=== PATIENT | male | born 1995 | race Caucasian/White ===

== ENCOUNTER 2017-02-10 12:50 | Emergency (ER) | payer BC, OTHER ==
[2017-02-10 13:06] VITALS: RESP 20; TEMP 98.3
[2017-02-10 13:37] LABS: Basophils # (A) 0.1 k/uL (0-0.2); Basophils % (A) 1 %; CH 30.8; CHCM 34.3; Eosinophils # (A) 0.3 k/uL (0-0.7); Eosinophils % (A) 3 %; HDW 2.59; HGB 17.3 gm/dL (13.0-17.5); Luc % (Auto) 2; Lymphocytes # (A) 2.4 k/uL (1.0-4.8); Lymphocytes % (A) 25 %; MCHC 33.2 g/dL (31.0-37.0); MCV 90.2 fL (80.0-100.0); Mean Platelet Volume 6.4; Monocytes # (A) 0.6 k/uL (0-1.0); Monocytes % (A) 6 %; Neutrophils % (A) 63 %; RBC 5.76 m/uL (4.30-5.90); RDW 13.3 % (11.5-15.5); WBC 9.5 k/uL (3.8-10.6); WBC (Perox) 8.81
--- NOTE | 2017-02-10 13:46 | XR ---
EXAMINATION TYPE: XR chest 2V DATE OF EXAM: 02/10/2017 COMPARISON: NONE TECHNIQUE: PA and lateral views submitted. HISTORY: Productive cough FINDINGS: The lungs are clear and there is no pneumothorax, pleural effusion, or focal pneumonia. IMPRESSION: 1. No acute process.
--- NOTE | 2017-02-10 13:54 | ED ---
URI HPI - General Chief Complaint: Upper Respiratory Infection Stated Complaint: Tonsillitis Time Seen by Provider: 02/10/17 13:05 Source: patient, family, RN notes reviewed Mode of arrival: ambulatory Limitations: no limitations - History of Present Illness Initial Comments: This a 21-year-old male presents emergency Department chief complaint of cough and cold-like symptoms for last 2-3 months. Patient states she's been having ongoing issues for last 2-3 years and which she was admitted in June for trismus and tonsillitis. Patient did end up having a tonsillectomy and states that he felt great after for the first 3 months but has recently started with similar symptoms which include nasal congestion, post his drainage, cough. Patient states that he has been seeing a physician in [place] in which she states this is his primary care physician and is place him on 14 days of antibiotics 1 month ago when he had no improvement of symptoms. He went back was given nasal sprays states he continues with symptoms. Patient states he has not follow-up with ENT for his symptoms. Patient denies fever, chills, headache or dizziness. Patient states that his mom wants him tested for leukemia. Patient denies any abdominal pain denies nausea and diarrhea constipation. Patient denies any neck pain or neck stiffness - Related Data Home Medications Medication Instructions Recorded Confirmed Loratadine [Claritin] 10 mg PO DAILY 02/10/17 02/10/17 Previous Rx's Medication Instructions Recorded methylPREDNISolone [Medrol Dose 4 mg PO DIRECTED #1 pack 02/10/17 Pack] Allergies Allergy/AdvReac Type Severity Reaction Status Date / Time No Known Allergies Allergy Verified 02/10/17 13:02 Review of Systems ROS Statement: Those systems with pertinent positive or pertinent negative responses have been documented in the HPI. ROS Other: All systems not noted in ROS Statement are negative. Past Medical History Past Medical History: No Reported History History of Any Multi-Drug Resistant Organisms: None Reported Past Surgical History: Tonsillectomy Past Psychological History: No Psychological Hx Reported Smoking Status: Never smoker Past Alcohol Use History: None Reported Past Drug Use History: None Reported - Past Family History Mother History Unknown: Yes General Exam Limitations: no limitations General appearance: alert, in no apparent distress Head exam: Present: atraumatic, normocephalic, normal inspection Eye exam: Present: normal appearance, PERRL, EOMI. Absent: scleral icterus, conjunctival injection, periorbital swelling ENT exam: Present: mucous membranes moist, TM's normal bilaterally, normal external ear exam, other (Nasal irritation noted). Absent: normal exam, normal oropharynx (Mild postnasal drainage) Neck exam: Present: normal inspection, full ROM. Absent: tenderness, meningismus, lymphadenopathy Respiratory exam: Present: normal lung sounds bilaterally. Absent: respiratory distress, wheezes, rales, rhonchi, stridor Cardiovascular Exam: Present: regular rate, normal rhythm, normal heart sounds. Absent: systolic murmur, diastolic murmur, rubs, gallop, clicks Back exam: Absent: CVA tenderness (R), CVA tenderness (L) Neurological exam: Present: alert, oriented X3, CN II-XII intact Skin exam: Present: warm, dry, intact, normal color. Absent: rash Course Vital Signs 02/10/17 13:02 Temperature 98.3 F Pulse Rate 110 H Respiratory 20 Rate Blood Pressure 160/95 O2 Sat by Pulse 94 L Oximetry Medical Decision Making - Medical Decision Making 21-year-old male present emergency from for chronic sinus congestion cough. Patient was likely has chronic ALLERGIES and sinusitis. Patient has been on antibiotics with no improvement. Patient bent taking Flonase no improvement. Patient given a course steroids for his ALLERGIES and advised to follow up with ENT. Patient did see Rakesh in the hospital but never follow patient. Patient is recommending another ENT in [place]. Patient also saw an ENT and [place] in which she also can follow up there. Return parameters were discussed - Lab Data Result diagrams: 02/10/17 13:28 02/10/17 13:28 Lab Results 02/10/17 02/10/17 02/10/17 Range/Units 13:28 13:28 13:28 WBC 9.5 (3.8-10.6) k/uL RBC 5.76 (4.30-5.90) m/uL Hgb 17.3 (13.0-17.5) gm/dL Hct 52.0 (39.0-53.0) % MCV 90.2 (80.0-100.0) fL MCH 30.0 (25.0-35.0) pg MCHC 33.2 (31.0-37.0) g/dL RDW 13.3 (11.5-15.5) % Plt Count 371 (150-450) k/uL Neutrophils % 63 % Lymphocytes % 25 % Monocytes % 6 % Eosinophils % 3 % Basophils % 1 % Neutrophils # 6.0 (1.3-7.7) k/uL Lymphocytes # 2.4 (1.0-4.8) k/uL Monocytes # 0.6 (0-1.0) k/uL Eosinophils # 0.3 (0-0.7) k/uL Basophils # 0.1 (0-0.2) k/uL Sodium 141 (137-145) mmol/L Potassium 4.5 (3.5-5.1) mmol/L Chloride 102 (98-107) mmol/L Carbon Dioxide 27 (22-30) mmol/L Anion Gap 12 mmol/L BUN 13 (9-20) mg/dL Creatinine 1.08 (0.66-1.25) mg/dL Est GFR (MDRD) Af Amer >60 (>60 ml/min/1.73 sqM) Est GFR (MDRD) Non-Af >60 (>60 ml/min/1.73 sqM) Glucose 85 (74-99) mg/dL Calcium 10.0 (8.4-10.2) mg/dL Total Bilirubin 1.0 (0.2-1.3) mg/dL AST 38 (17-59) U/L ALT 61 (21-72) U/L Alkaline Phosphatase 81 (38-126) U/L Total Protein 7.9 (6.3-8.2) g/dL Albumin 4.9 (3.5-5.0) g/dL Heterophile Antibody Negative (Negative) Disposition Clinical Impression: Chronic sinusitis, Environmental allergies Disposition: HOME SELF-CARE Condition: Stable Instructions: Allergies (ED) Additional Instructions: Please return to the Emergency Department if symptoms worsen or any other concerns. Prescriptions: methylPREDNISolone [Medrol Dose Pack] 4 mg PO DIRECTED #1 pack Referrals: None,Stated [Primary Care Provider] - 1-2 days Time of Disposition: 14:12
[2017-02-10 13:58] LABS: ALT 61 U/L (21-72); AST 38 U/L (17-59); Alkaline Phosphatase 81 U/L (38-126); Anion Gap 12 mmol/L; Blood Urea Nitrogen 13 mg/dL (9-20); Carbon Dioxide 27 mmol/L (22-30); Chloride 102 mmol/L (98-107); Glucose 85 mg/dL (74-99); Non-African American GFR(MDRD) >60 (>60 ml/min/1.73 sqM); Potassium 4.5 mmol/L (3.5-5.1); Sodium 141 mmol/L (137-145); Total Protein 7.9 g/dL (6.3-8.2)
[2017-02-10 14:20] VITALS: BP 155/90; PULSE 95
== END 2017-02-10 14:20 | disposition home or self-care (01) ==
LOC: EC 12:50
DX: T78.49XA Other allergy, initial encounter (principal); J32.9 Chronic sinusitis, unspecified; Z79.899 Other long term (current) drug therapy; Z90.89 Acquired absence of other organs
CPT/HCPCS: 36415; 71020; 80053; 85025; 86308; 99283

== ENCOUNTER 2020-10-25 20:03 | Emergency (ER) | payer BC, OTHER ==
[2020-10-25 20:17] VITALS: RESP 18; TEMP 97.4
[2020-10-25] MEDS ORDERED: SODIUM CHLORIDE 0.9% 1,000 ML IV STA (20:41)
--- NOTE | 2020-10-25 21:31 | XR ---
EXAMINATION TYPE: XR chest 2V DATE OF EXAM: 10/25/2020 COMPARISON: 02/10/2017 HISTORY: Cough TECHNIQUE: Frontal and lateral views of the chest are obtained. FINDINGS: The lungs are clear of consolidative, interstitial masslike opacity. There is no pleural effusion, pleural thickening or pneumothorax. The heart, pulmonary vasculature, mediastinum and hilum appear normal. The osseous structures and soft tissues are unremarkable. IMPRESSION: No acute cardiopulmonary process.
[2020-10-25 21:39] LABS: Appearance,Urine Clear (Clear); Bilirubin,Urine Negative (Negative); Blood,Urine Negative (Negative); Color,Urine Yellow; Glucose,Urine (UA) 3+ (Negative); Leukocyte Esterase,Urine Negative (Negative); Nitrite,Urine Negative (Negative); PH, Urine 5.5 (5.0-8.0); Protein,Urine Trace (Negative); Specific Gravity,Urine 1.025 (1.001-1.035); Urobilinogen,Urine <2.0 mg/dL (<2.0)
[2020-10-25 21:47] LABS: ALT 57 U/L (4-49); AST 39 U/L (17-59); African American GFR (CKD) >90 (>60 ml/min/1.73 sqM); Albumin 4.9 g/dL (3.5-5.0); Alkaline Phosphatase 81 U/L (38-126); Anion Gap 10 mmol/L; Basophils # (A) 0.1 k/uL (0-0.2); Basophils % (A) 0 %; Blood Urea Nitrogen 18 mg/dL (9-20); Carbon Dioxide 25 mmol/L (22-30); Chloride 103 mmol/L (98-107); Eosinophils % (A) 0 %; Glucose 101 mg/dL (74-99); HCT 49.4 % (39.0-53.0); HGB 16.2 gm/dL (13.0-17.5); Lymphocytes % (A) 12 %; MCH 29.2 pg (25.0-35.0); MCHC 32.8 g/dL (31.0-37.0); MCV 89.2 fL (80.0-100.0); Monocytes % (A) 6 %; Neutrophils # (A) 13.4 k/uL (1.3-7.7); Neutrophils % (A) 81 %; Non-African American GFR(CKD) >90 (>60 ml/min/1.73 sqM); Platelet Count 323 k/uL (150-450); Potassium 3.9 mmol/L (3.5-5.1); RBC 5.54 m/uL (4.30-5.90); RDW 13.2 % (11.5-15.5); Sodium 138 mmol/L (137-145); Total Bilirubin 0.6 mg/dL (0.2-1.3); Total Protein 7.9 g/dL (6.3-8.2); WBC 16.6 k/uL (3.8-10.6)
[2020-10-25 21:51] LABS: Ketones,Urine 2+ (Negative)
[2020-10-25 21:58] VITALS: BP 104/68; PULSE 88
[2020-10-25 22:01] LABS: Partial Thromboplastin Time 23.8 sec (22.0-30.0); Prothrombin Time 10.8 sec (9.0-12.0)
--- NOTE | 2020-10-25 22:39 | ED ---
General Adult HPI - General Chief complaint: Weakness Stated complaint: Possible allergic reaction Source: patient, EMS Mode of arrival: EMS Limitations: no limitations - History of Present Illness Initial comments: 25-year-old male with no past medical history presents emergency department after he had a presyncopal episode. Patient states he was driving home from work when he had shortness of breath. States began having carpal pedal spasms and felt his whole body go numb. He felt as if he could not keep his eyes open and therefore pulled off to the side of the road. He admits that he is taking a new reflux medication that he started last week. Has not had any issues up until today. States that he drank 1 energy drink at work however no other ingestions. EMS arrived and felt the patient may be having an ALLERGIC reaction and therefore gave him 50 mg of Benadryl and started an IV. Patient admitted to having slight chest pain. Admits nausea without vomiting. No previous history of cardiac disease. Denies family history of cardiac disease. No other allevi ating, precipitating or modifying factors - Related Data Home Medications Medication Instructions Recorded Confirmed Omeprazole 40 mg PO HS 10/25/20 10/25/20 Allergies Allergy/AdvReac Type Severity Reaction Status Date / Time No Known Allergies Allergy Verified 10/25/20 21:31 Review of Systems ROS Statement: Those systems with pertinent positive or pertinent negative responses have been documented in the HPI. ROS Other: All systems not noted in ROS Statement are negative. Past Medical History Past Medical History: Asthma, GERD/Reflux, Thyroid Disorder Additional Past Medical History / Comment(s): COVID History of Any Multi-Drug Resistant Organisms: None Reported Past Surgical History: Tonsillectomy Past Psychological History: No Psychological Hx Reported Smoking Status: Never smoker Past Alcohol Use History: Occasional Past Drug Use History: Marijuana - Past Family History Mother History Unknown: Yes General Exam Limitations: no limitations Course Vital Signs 10/25/20 10/25/20 10/25/20 20:05 21:49 22:51 Temperature 97.4 F L 97.4 F L Pulse Rate 108 H 88 88 Respiratory 18 18 18 Rate Blood Pressure 141/83 104/68 104/68 O2 Sat by Pulse 98 98 98 Oximetry 10/25/20 22:53 Temperature Pulse Rate Respiratory 18 Rate Blood Pressure O2 Sat by Pulse Oximetry EKG Findings - EKG Comments: EKG Findings:: EKG demonstrates sinus tachycardia with a ventricular rate of 109. TX interval 142. QRS 76. QTC of 471. No acute ST segment elevations or depressions Medical Decision Making - Medical Decision Making Upon arrival the patient was placed into hallway . A thorough history and physical exam was performed. Laboratory studies were conducted and patient provided a urine sample. 12-lead EKG was performed the patient went for chest x-ray. I blood cell count 16.6. Urinalysis demonstrates 3+ glucose. Glucose of the serum is 101. Chest x-ray demonstrates no acute findings. Patient is reevaluated and reports improvement in his symptoms. This time the patient will be discharged home. Recommend hemoglobin A1c and Holter monitoring through his primary care office. Patient understood this. Return to emergency room for any new or worsening symptoms. Patient discharged with the physician - Lab Data Result diagrams: 10/25/20 20:25 10/25/20 20:25 Lab Results 10/25/20 10/25/20 10/25/20 Range/Units 20:25 20:25 20:25 WBC 16.6 H (3.8-10.6) k/uL RBC 5.54 (4.30-5.90) m/uL Hgb 16.2 (13.0-17.5) gm/dL Hct 49.4 (39.0-53.0) % MCV 89.2 (80.0-100.0) fL MCH 29.2 (25.0-35.0) pg MCHC 32.8 (31.0-37.0) g/dL RDW 13.2 (11.5-15.5) % Plt Count 323 (150-450) k/uL MPV 7.0 Neutrophils % 81 % Lymphocytes % 12 % Monocytes % 6 % Eosinophils % 0 % Basophils % 0 % Neutrophils # 13.4 H (1.3-7.7) k/uL Lymphocytes # 2.0 (1.0-4.8) k/uL Monocytes # 1.0 (0-1.0) k/uL Eosinophils # 0.0 (0-0.7) k/uL Basophils # 0.1 (0-0.2) k/uL PT 10.8 (9.0-12.0) sec INR 1.0 (<1.2) APTT 23.8 (22.0-30.0) sec Sodium (137-145) mmol/L Potassium (3.5-5.1) mmol/L Chloride (98-107) mmol/L Carbon Dioxide (22-30) mmol/L Anion Gap mmol/L BUN (9-20) mg/dL Creatinine (0.66-1.25) mg/dL Est GFR (CKD-EPI)AfAm (>60 ml/min/1.73 sqM) Est GFR (CKD-EPI)NonAf (>60 ml/min/1.73 sqM) Glucose (74-99) mg/dL Calcium (8.4-10.2) mg/dL Total Bilirubin (0.2-1.3) mg/dL AST (17-59) U/L ALT (4-49) U/L Alkaline Phosphatase (38-126) U/L Troponin I (0.000-0.034) ng/mL Total Protein (6.3-8.2) g/dL Albumin (3.5-5.0) g/dL Urine Color Yellow Urine Appearance Clear (Clear) Urine pH 5.5 (5.0-8.0) Ur Specific [place] 1.025 (1.001-1.035) Urine Protein Trace H (Negative) Urine Glucose (UA) 3+ H (Negative) Urine Ketones 2+ H (Negative) Urine Blood Negative (Negative) Urine Nitrite Negative (Negative) Urine Bilirubin Negative (Negative) Urine Urobilinogen <2.0 (<2.0) mg/dL Ur Leukocyte Esterase Negative (Negative) 10/25/20 10/25/20 Range/Units 20:25 20:25 WBC (3.8-10.6) k/uL RBC (4.30-5.90) m/uL Hgb (13.0-17.5) gm/dL Hct (39.0-53.0) % MCV (80.0-100.0) fL MCH (25.0-35.0) pg MCHC (31.0-37.0) g/dL RDW (11.5-15.5) % Plt Count (150-450) k/uL MPV Neutrophils % % Lymphocytes % % Monocytes % % Eosinophils % % Basophils % % Neutrophils # (1.3-7.7) k/uL Lymphocytes # (1.0-4.8) k/uL Monocytes # (0-1.0) k/uL Eosinophils # (0-0.7) k/uL Basophils # (0-0.2) k/uL PT (9.0-12.0) sec INR (<1.2) APTT (22.0-30.0) sec Sodium 138 (137-145) mmol/L Potassium 3.9 (3.5-5.1) mmol/L Chloride 103 (98-107) mmol/L Carbon Dioxide 25 (22-30) mmol/L Anion Gap 10 mmol/L BUN 18 (9-20) mg/dL Creatinine 1.03 (0.66-1.25) mg/dL Est GFR (CKD-EPI)AfAm >90 (>60 ml/min/1.73 sqM) Est GFR (CKD-EPI)NonAf >90 (>60 ml/min/1.73 sqM) Glucose 101 H (74-99) mg/dL Calcium 10.0 (8.4-10.2) mg/dL Total Bilirubin 0.6 (0.2-1.3) mg/dL AST 39 (17-59) U/L ALT 57 H (4-49) U/L Alkaline Phosphatase 81 (38-126) U/L Troponin I <0.012 (0.000-0.034) ng/mL Total Protein 7.9 (6.3-8.2) g/dL Albumin 4.9 (3.5-5.0) g/dL Urine Color Urine Appearance (Clear) Urine pH (5.0-8.0) Ur Specific [place] (1.001-1.035) Urine Protein (Negative) Urine Glucose (UA) (Negative) Urine Ketones (Negative) Urine Blood (Negative) Urine Nitrite (Negative) Urine Bilirubin (Negative) Urine Urobilinogen (<2.0) mg/dL Ur Leukocyte Esterase (Negative) Disposition Clinical Impression: Respiratory insufficiency Disposition: HOME SELF-CARE Condition: Stable Instructions (If sedation given, give patient instructions): Shortness of Breath (ED) Additional Instructions: Please follow up with your PCP. You should have holter monitoring and a hemoglobin a1c performed. Return to the ED for any new or worsening symptoms. Is patient prescribed a controlled substance at d/c from ED?: No Referrals: Elen Apple MD [Primary Care Provider] - 1-2 days Decision Date: 10/25/20 Decision Time: 22:39
== END 2020-10-25 22:56 | disposition home or self-care (01) ==
LOC: EC 20:03
DX: R06.89 Other abnormalities of breathing (principal); R55 Syncope and collapse; R53.1 Weakness; R07.9 Chest pain, unspecified; R06.02 Shortness of breath; R11.0 Nausea; R20.0 Anesthesia of skin; R25.2 Cramp and spasm; J45.909 Unspecified asthma, uncomplicated; K21.9 Gastro-esophageal reflux disease without esophagitis
CPT/HCPCS: 36415; 71046; 80053; 81003; 84484; 85025; 85610; 85730; 93005; 96360; 99285

== ENCOUNTER → 2020-10-26 | Outpatient (CLI) | payer BC ==
[2020-10-26 20:32] LABS: HCT 50.8 % (39.6-50.0); HGB 16.5 g/dL (13.0-17.0); MCH 29.9 pg (27.0-32.0); MCHC 32.5 g/dL (32.0-37.0); Mean Platelet Volume 10.4 fL (9.5-12.2); Platelet Count 339 X 10*3/uL (140-440); RBC 5.52 X 10*6/uL (4.40-5.60); RDW 12.9 % (11.5-14.5); WBC 9.15 X 10*3/uL (4.50-10.00)
[2020-10-26 21:11] LABS: Protein, Total 7.1 g/dL (6.2-8.2)
[2020-10-26 21:28] LABS: Ferritin 116.3 ng/mL (22.0-322.0)
[2020-10-26 23:27] LABS: African American GFR (CKD) 120.7 (60.0-200.0); Albumin 5.1 g/dL (3.80-4.90); Albumin/Globulin Ratio 2.32 (1.60-3.17); Anion Gap 8.6 mmol/L (4.00-12.00); Calcium 9.8 mg/dL (8.7-10.3); Carbon Dioxide 25.4 mmol/L (21.6-31.8); Globulin 2.2 g/dL (1.6-3.3); Non-African American GFR(CKD) 104.1 (60.0-200.0); Potassium 4.3 mmol/L (3.5-5.5); Total Bilirubin 0.5 mg/dL (0.3-1.2); Total Protein 7.3 g/dL (6.2-8.2)
[2020-10-29 13:35] LABS: Albumin 4.42 g/dL (3.80-4.90); Gamma Globulin 0.83 g/dL (0.70-1.50)
== END | disposition home or self-care (01) ==
LOC: LABWHC1 10:50
PROVIDERS: ATTEND Family Medicine
DX: K21.9 Gastro-esophageal reflux disease without esophagitis (principal); E66.9 Obesity, unspecified; Z83.49 Family history of other endocrine, nutritional and metabolic diseases
CPT/HCPCS: 36415; 80053; 82103; 82728; 83655; 84165; 84443; 84481; 85027

== ENCOUNTER 2020-11-02 18:10 | Emergency (ER) | payer BC ==
[2020-11-02] MEDS ORDERED: ACETAMINOPHEN TAB 500 MG TAB PO STA (18:19)
[2020-11-02] MEDS ORDERED: SODIUM CHLORIDE 0.9% 1,000 ML IV ONE (19:24)
[2020-11-02] MEDS ORDERED: KETOROLAC 15 MG/ML 1 ML VIAL IVP STA (19:24)
--- NOTE | 2020-11-02 19:38 | ED ---
General Adult HPI - General Chief complaint: Fever Stated complaint: Fever, MAXWELL, post covid vaccine Time Seen by Provider: 11/02/20 19:15 Source: patient, RN notes reviewed, old records reviewed Mode of arrival: ambulatory Limitations: no limitations - History of Present Illness Initial comments: 25-year-old male presenting with fever. Patient received coronavirus vaccine yesterday. He noticed generalized weakness, and high fever today. He did repo rt some dyspnea associated with this. He states his fever was 103 at home and was not breaking with Tylenol. He received his first dose. No nausea vomiting. No rash. No central chest pain. - Related Data Home Medications Medication Instructions Recorded Confirmed Omeprazole 40 mg PO HS 10/25/20 10/25/20 Allergies Allergy/AdvReac Type Severity Reaction Status Date / Time No Known Allergies Allergy Verified 11/02/20 18:15 Review of Systems ROS Statement: Those systems with pertinent positive or pertinent negative responses have been documented in the HPI. ROS Other: All systems not noted in ROS Statement are negative. Past Medical History Past Medical History: Asthma, GERD/Reflux, Thyroid Disorder Additional Past Medical History / Comment(s): COVID History of Any Multi-Drug Resistant Organisms: None Reported Past Surgical History: Tonsillectomy Past Psychological History: No Psychological Hx Reported Smoking Status: Never smoker Past Alcohol Use History: Occasional Past Drug Use History: Marijuana - Past Family History Mother History Unknown: Yes General Exam Limitations: no limitations General appearance: alert Head exam: Present: atraumatic, normocephalic Eye exam: Present: normal appearance, PERRL ENT exam: Present: normal exam Neck exam: Present: normal inspection. Absent: tenderness, meningismus Respiratory exam: Present: normal lung sounds bilaterally. Absent: respiratory distress Cardiovascular Exam: Present: normal rhythm, tachycardia GI/Abdominal exam: Present: soft. Absent: distended, tenderness, guarding Extremities exam: Present: normal inspection, normal capillary refill. Absent: pedal edema, calf tenderness Neurological exam: Present: alert, oriented X3, CN II-XII intact. Absent: motor sensory deficit Skin exam: Present: warm, diaphoretic Course Vital Signs 11/02/20 11/02/20 18:11 20:12 Temperature 103.0 F H Pulse Rate 136 H 84 Respiratory 22 16 Rate Blood Pressure 124/66 122/74 O2 Sat by Pulse 95 97 Oximetry Medical Decision Making - Medical Decision Making 25-year-old male presenting with fever, fatigue after coronavirus vaccine. He did have coronavirus infection previously. Patient has high fever, tachycardic appears unwell. IV is established, he's given Toradol, Tylenol, and IV fluids. I'll signs to significantly improved. He has a normal CBC, CMP is unremarkable. Patient does have incidental finding of an elevated INR not on anticoagulation. This will need to be followed up as an outpatient. His d-dimer was elevated and CT angiography was performed especially in the setting of a syncopal episode which occurred approximately one week ago with associated dyspnea. CT angiography is negative for PE, no acute findings. Patient will take Tylenol Motrin for symptoms, good plenty fluids. - Lab Data Result diagrams: 11/02/20 20:11 11/02/20 20:11 Lab Results 11/02/20 11/02/20 11/02/20 Range/Units 18:20 20:11 20:11 WBC 8.6 (3.8-10.6) k/uL RBC 5.36 (4.30-5.90) m/uL Hgb 16.5 (13.0-17.5) gm/dL Hct 47.1 (39.0-53.0) % MCV 87.9 (80.0-100.0) fL MCH 30.8 (25.0-35.0) pg MCHC 35.0 (31.0-37.0) g/dL RDW 12.5 (11.5-15.5) % Plt Count 252 (150-450) k/uL MPV 7.4 Neutrophils % 83 % Lymphocytes % 9 % Monocytes % 6 % Eosinophils % 1 % Basophils % 1 % Neutrophils # 7.2 (1.3-7.7) k/uL Lymphocytes # 0.7 L (1.0-4.8) k/uL Monocytes # 0.5 (0-1.0) k/uL Eosinophils # 0.1 (0-0.7) k/uL Basophils # 0.1 (0-0.2) k/uL PT (9.0-12.0) sec INR (<1.2) APTT (22.0-30.0) sec D-Dimer (<0.60) mg/L FEU Sodium 135 L (137-145) mmol/L Potassium 4.7 (3.5-5.1) mmol/L Chloride 102 (98-107) mmol/L Carbon Dioxide 23 (22-30) mmol/L Anion Gap 10 mmol/L BUN 20 (9-20) mg/dL Creatinine 1.08 (0.66-1.25) mg/dL Est GFR (CKD-EPI)AfAm >90 (>60 ml/min/1.73 sqM) Est GFR (CKD-EPI)NonAf >90 (>60 ml/min/1.73 sqM) Glucose 103 H (74-99) mg/dL Calcium 10.0 (8.4-10.2) mg/dL Total Bilirubin 1.2 (0.2-1.3) mg/dL AST 46 (17-59) U/L ALT 40 (4-49) U/L Alkaline Phosphatase 66 (38-126) U/L Troponin I (0.000-0.034) ng/mL Total Protein 8.2 (6.3-8.2) g/dL Albumin 4.9 (3.5-5.0) g/dL Urine Color Urine Appearance (Clear) Urine pH (5.0-8.0) Ur Specific [place] (1.001-1.035) Urine Protein (Negative) Urine Glucose (UA) (Negative) Urine Ketones (Negative) Urine Blood (Negative) Urine Nitrite (Negative) Urine Bilirubin (Negative) Urine Urobilinogen (<2.0) mg/dL Ur Leukocyte Esterase (Negative) Urine RBC (0-5) /hpf Urine WBC (0-5) /hpf Hyaline Casts (0-2) /lpf Urine Mucus (None) /hpf Coronavirus (PCR) Not Detected (Not Detectd) 11/02/20 11/02/20 11/02/20 Range/Units 20:11 20:11 21:25 WBC (3.8-10.6) k/uL RBC (4.30-5.90) m/uL Hgb (13.0-17.5) gm/dL Hct (39.0-53.0) % MCV (80.0-100.0) fL MCH (25.0-35.0) pg MCHC (31.0-37.0) g/dL RDW (11.5-15.5) % Plt Count (150-450) k/uL MPV Neutrophils % % Lymphocytes % % Monocytes % % Eosinophils % % Basophils % % Neutrophils # (1.3-7.7) k/uL Lymphocytes # (1.0-4.8) k/uL Monocytes # (0-1.0) k/uL Eosinophils # (0-0.7) k/uL Basophils # (0-0.2) k/uL PT 16.8 H (9.0-12.0) sec INR 1.7 H (<1.2) APTT 27.0 (22.0-30.0) sec D-Dimer 1.52 H (<0.60) mg/L FEU Sodium (137-145) mmol/L Potassium (3.5-5.1) mmol/L Chloride (98-107) mmol/L Carbon Dioxide (22-30) mmol/L Anion Gap mmol/L BUN (9-20) mg/dL Creatinine (0.66-1.25) mg/dL Est GFR (CKD-EPI)AfAm (>60 ml/min/1.73 sqM) Est GFR (CKD-EPI)NonAf (>60 ml/min/1.73 sqM) Glucose (74-99) mg/dL Calcium (8.4-10.2) mg/dL Total Bilirubin (0.2-1.3) mg/dL AST (17-59) U/L ALT (4-49) U/L Alkaline Phosphatase (38-126) U/L Troponin I <0.012 (0.000-0.034) ng/mL Total Protein (6.3-8.2) g/dL Albumin (3.5-5.0) g/dL Urine Color Yellow Urine Appearance Clear (Clear) Urine pH 6.5 (5.0-8.0) Ur Specific [place] 1.026 (1.001-1.035) Urine Protein 1+ H (Negative) Urine Glucose (UA) Negative (Negative) Urine Ketones Negative (Negative) Urine Blood Negative (Negative) Urine Nitrite Negative (Negative) Urine Bilirubin Negative (Negative) Urine Urobilinogen <2.0 (<2.0) mg/dL Ur Leukocyte Esterase Negative (Negative) Urine RBC 1 (0-5) /hpf Urine WBC 1 (0-5) /hpf Hyaline Casts 1 (0-2) /lpf Urine Mucus Many H (None) /hpf Coronavirus (PCR) (Not Detectd) Disposition Clinical Impression: Dehydration, Vaccine reaction Disposition: HOME SELF-CARE Condition: Good Instructions (If sedation given, give patient instructions): Fever in Adults (ED) Is patient prescribed a controlled substance at d/c from ED?: No Referrals: Elen Apple MD [Primary Care Provider] - 1-2 days Time of Disposition: 22:18
--- NOTE | 2020-11-02 19:42 | XR ---
EXAMINATION TYPE: XR chest 2V DATE OF EXAM: 11/02/2020 COMPARISON: 10/25/2020 INDICATION: Fever TECHNIQUE: Frontal and lateral views of the chest are obtained. FINDINGS: The heart size is normal. The pulmonary vasculature is normal. The lungs are clear. IMPRESSION: 1. No acute pulmonary process.
[2020-11-02 20:19] LABS: Basophils # (A) 0.1 k/uL (0-0.2); Basophils % (A) 1 %; Eosinophils # (A) 0.1 k/uL (0-0.7); Eosinophils % (A) 1 %; HCT 47.1 % (39.0-53.0); HGB 16.5 gm/dL (13.0-17.5); Lymphocytes # (A) 0.7 k/uL (1.0-4.8); Lymphocytes % (A) 9 %; MCH 30.8 pg (25.0-35.0); MCV 87.9 fL (80.0-100.0); Mean Platelet Volume 7.4; Monocytes # (A) 0.5 k/uL (0-1.0); Monocytes % (A) 6 %; Neutrophils # (A) 7.2 k/uL (1.3-7.7); Neutrophils % (A) 83 %; Platelet Count 252 k/uL (150-450); RBC 5.36 m/uL (4.30-5.90); RDW 12.5 % (11.5-15.5); WBC 8.6 k/uL (3.8-10.6)
[2020-11-02 20:30] LABS: ALT 40 U/L (4-49); AST 46 U/L (17-59); African American GFR (CKD) >90 (>60 ml/min/1.73 sqM); Albumin 4.9 g/dL (3.5-5.0); Alkaline Phosphatase 66 U/L (38-126); Anion Gap 10 mmol/L; Blood Urea Nitrogen 20 mg/dL (9-20); Carbon Dioxide 23 mmol/L (22-30); Chloride 102 mmol/L (98-107); Glucose 103 mg/dL (74-99); Non-African American GFR(CKD) >90 (>60 ml/min/1.73 sqM); Sodium 135 mmol/L (137-145); Total Bilirubin 1.2 mg/dL (0.2-1.3); Total Protein 8.2 g/dL (6.3-8.2)
[2020-11-02 20:34] LABS: Potassium 4.7 mmol/L (3.5-5.1)
[2020-11-02 21:38] LABS: INR 1.7 (<1.2); Prothrombin Time 16.8 sec (9.0-12.0)
[2020-11-02 21:39] LABS: D-Dimer 1.52 mg/L FEU (<0.60)
[2020-11-02 21:43] LABS: Appearance,Urine Clear (Clear); Bilirubin,Urine Negative (Negative); Blood,Urine Negative (Negative); Color,Urine Yellow; Glucose,Urine (UA) Negative (Negative); Hyaline Casts,Urine 1 /lpf (0-2); Ketones,Urine Negative (Negative); Leukocyte Esterase,Urine Negative (Negative); Mucus,Urine Many /hpf; Nitrite,Urine Negative (Negative); PH, Urine 6.5 (5.0-8.0); Protein,Urine 1+ (Negative); RBC,Urine 1 /hpf (0-5); Specific Gravity,Urine 1.026 (1.001-1.035); Urobilinogen,Urine <2.0 mg/dL (<2.0); WBC,Urine 1 /hpf (0-5)
--- NOTE | 2020-11-02 22:23 | CT ---
EXAMINATION TYPE: CT angio chest DATE OF EXAM: 11/02/2020 COMPARISON: None HISTORY: Dyspnea, fever, and elevated d-dimer. CT DLP: 469.4 mGycm Automated exposure control for dose reduction was used. CONTRAST: Performed with IV Contrast, patient injected with 62ml mL of Isovue 370. Images obtained from the thoracic inlet to the diaphragm with IV contrast and 3-D post processing. FINDINGS: There is no mediastinal adenopathy. Thoracic aorta appears normal. There is no aneurysm or dissection . There are no hilar masses. There is normal contrast opacification of the pulmonary arteries. There are no filling defects. Heart size is normal. There is no pericardial effusion. Upper abdominal soft tissues are intact. There is some fatty infiltration of the liver. The lungs are clear of infiltrate. There is no evidence of a pulmonary mass. Soft tissues appear norm al. The thoracic spine is intact. IMPRESSION: Negative CT angiogram of the chest. No evidence of pulmonary embolism.
[2020-11-02 23:15] VITALS: BP 117/64; PULSE 67; RESP 17; TEMP 98.4
== END 2020-11-02 23:15 | disposition home or self-care (01) ==
LOC: EC 18:10
DX: E86.0 Dehydration (principal); R06.00 Dyspnea, unspecified; R50.9 Fever, unspecified; T50.Z95A Adverse effect of other vaccines and biological substances, initial encounter; J45.909 Unspecified asthma, uncomplicated; K21.9 Gastro-esophageal reflux disease without esophagitis; F12.90 Cannabis use, unspecified, uncomplicated; Z86.16 Personal history of COVID-19; Z20.822 Contact with and (suspected) exposure to COVID-19
CPT/HCPCS: 36415; 85379; 80053; 84484; 85025; 85610; 85730; 81001; 87635; 71046; 71275; 99285; 96374; 96361 ×2; J1885; Q9967

== ENCOUNTER → 2021-02-26 | Day surgery (SDC) | payer BC ==
[2021-02-21 15:32] VITALS: BMI 32.5
[~2021-02-26] MED LIST: SODIUM CHLORIDE 0.9% 1,000 ML IV SCH
[2021-02-26 08:26] VITALS: RESP 18; TEMP 98.3
[2021-02-26 10:24] VITALS: BP 145/84; PULSE 76
--- NOTE | 2021-02-26 17:09 | P.EPPROC ---
- EP Procedure Note Electrophysiology Procedure Note: Diagnosis Recurrent syncope Twelve-lead EKG Sinus rhythm, with blocked PAC Tilt table testing Baseline blood pressure 130/75 mmHg, Baseline heart rate 80 beats a minute Patient was tilted upright at an angle of 70 per protocol No change in heart rate and blood pressure No syncope no symptoms He is laid supine at the end of the procedure Impression Normal twelve-lead EKG with normal SD narrow QRS normal ST segments. No delta waves no epsilon waves Occasional blocked PACs Normal tilt table testing
== END ==
LOC: CATHEP 08:05
PROVIDERS: ATTEND Internal Medicine Clinical Cardiac Electrophysiology
DX: R55 Syncope and collapse (principal); Z79.899 Other long term (current) drug therapy
CPT/HCPCS: 93660

== ENCOUNTER → 2021-04-11 | Outpatient (CLI) | payer BC ==
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
== END | disposition home or self-care (01) ==
LOC: SLEEP 15:45
PROVIDERS: ATTEND Internal Medicine
DX: G47.33 Obstructive sleep apnea (adult) (pediatric) (principal); R06.83 Snoring; R35.1 Nocturia; E66.01 Morbid (severe) obesity due to excess calories; K21.9 Gastro-esophageal reflux disease without esophagitis; R51.9 Headache, unspecified; E03.9 Hypothyroidism, unspecified; Z90.89 Acquired absence of other organs; Z68.32 Body mass index [BMI] 32.0-32.9, adult
CPT/HCPCS: 99211

== ENCOUNTER → 2021-05-23 | Outpatient (CLI) | payer BC ==
--- NOTE | 2021-05-23 20:01 | SFUN ---
SLEEP CENTER FOLLOW UP NOTE DATE OF SERVICE: 05/23/2021 This 25-year-old gentleman has been followed in Sleep Center and is here to discuss results of his sleep study and following plan. I discussed results of the sleep test with the patient in detail. The day before yesterday he had a polysomnogram which showed high sleep efficiency of 96%, normal amount of REM sleep present 3 times and good range of delta sleep for his age. No abnormalities of respiration documented. Normal oxygenation during sleep. No periodic limb movements have been documented. Multiple sleep latency test was done on the following day. It consisted of 5 naps. The patient fell asleep on all naps. Mean sleep latency with 4 naps was 5.7 minutes, with 5 naps 7.5 minutes, which is definitely shorter than normal. No sleep-onset REM periods have been documented. Patient continues to feel sleepiness during the day. MEDICATIONS: Omeprazole, sertraline. PHYSICAL EXAMINATION: GENERAL: Pleasant patient in no distress. VITAL SIGNS: BP 116/69, HR 80, RR 15, height 5 feet 7 inches, weight 210, oxygen saturation at room air 93%. HEENT: PERRLA, EOMI, evaluation of oropharynx showed tongue protrudes midline. Low position of soft palate; Mallampati III to IV. NECK: Supple, no JVD. Thyroid is not palpable. LUNGS: Clear to percussion and to auscultation. Good air exchange. No wheezing or rhonchi. HEART: S1, S2 regular. No murmurs, gallops, or rubs. ABDOMEN: Soft and nontender. Bowel sounds are present. No organomegaly appreciated. EXTREMITIES: No clubbing or cyanosis. BI DATA MODELER: Awake, alert, and oriented X3. Cranial nerves 2 to 7 intact. There is no fasciculation or atrophy. noted. No focal deficits observed. IMPRESSION: 1. No respiratory abnormalities have been documented during the sleep study. Normal oxygenation during the test. 2. Multiple sleep latency test confirms sleepiness. Mean sleep latency short. Differential diagnosis includes idiopathic hypersomnia and narcolepsy. 3. History of sleeptalking. 4. Mild obesity. 5. History of asthma. 6. Acid reflux. 7. Sinus problems. 8. Headaches. 9. History of hypothyroidism in the past. 10.Status post tonsillectomy and adenoidectomy. PLAN: 1. I will start patient with the lowest dose of Adderall 5 mg twice a day with a goal to prevent sleepiness. 2. Sleep hygiene with regular time in bed for at least 8 hours. 3. Precautions related to driving. No driving at the present time until his sleepiness is under better control. 4. Follow-up visit in one month. Thank you very much for allowing me to participate in the management of your patient. Sincerely, Dani Pinto MD, PhD, FAASM Diplomat of [employer] Sleep Medicine Board of [employer] Sixth Grade Teacher of [facility] [place] MMODL / IJN: [id number] /
== END | disposition home or self-care (01) ==
LOC: SLEEP 10:20
PROVIDERS: ATTEND Internal Medicine
DX: E66.9 Obesity, unspecified (principal); K21.9 Gastro-esophageal reflux disease without esophagitis; R51.9 Headache, unspecified; Z87.09 Personal history of other diseases of the respiratory system; Z86.39 Personal history of other endocrine, nutritional and metabolic disease; Z98.890 Other specified postprocedural states

== ENCOUNTER → 2021-06-13 | Outpatient (CLI) | payer BC ==
--- NOTE | 2021-06-14 09:34 | SFUN ---
SLEEP CENTER FOLLOW UP NOTE DATE OF SERVICE: 06/13/2021 This 25-year-old gentleman has been followed in Sleep Center for treatment of possible narcolepsy versus idiopathic hypersomnia. During the previous visit, which was about 3 weeks ago, the patient was started on treatment with Adderall 5 mg twice a day. With this regimen, according to patient, he was able to work actively all these 3 weeks. He had only one episode when he fell asleep, not at an appropriate moment. No significant side effects from the medication. The patient takes medication first tablet at about 7 or 8 a.m. in the morning and second tablet at 1 or 2 p.m. in the afternoon. In the evening he is going to bed around 10 or 11 p.m. At that time he already feels sleepy, and falls asleep well. [place] Sleepiness Scale today is 12, which is above normal range, but significantly less than during the previous visit, when it was 20. MEDICATIONS: Other medications include omeprazole and sertraline. PHYSICAL EXAMINATION: GENERAL: Pleasant patient in no distress. VITAL SIGNS: BP 112/66, HR 89, RR 16, weight 210, temperature 97.5. HEENT: PERRLA, EOMI, evaluation of oropharynx showed tongue protrudes midline. Low position of soft palate; Mallampati III. NECK: Supple, no JVD. Thyroid is not palpable. LUNGS: Clear to percussion and to auscultation. Good air exchange. No wheezing or rhonchi. HEART: S1, S2 regular. No murmurs, gallops, or rubs. ABDOMEN: Soft and nontender. Bowel sounds are present. No organomegaly appreciated. EXTREMITIES: No clubbing or cyanosis. MUD JACK NOZZLE WORKER: Awake, alert, and oriented X3. Cranial nerves 2 to 7 intact. There is no fasciculation or atrophy. noted. No focal deficits observed. IMPRESSION: 1. Significant excessive daytime sleepiness confirmed by multiple sleep latency test. Mean sleep latency by 4 naps 5.7 minutes, by 5 naps 7.5 minutes. No sleep-onset REM periods have been documented. Differential diagnosis is narcolepsy without cataplexy and idiopathic hypersomnia. Condition improved on Adderall 5 mg twice a day. 2. History of asthma. 3. Mild obesity. 4. Acid reflux. 5. History of sinus problems. 6. History of headaches. 7. History of hypothyroidism in the past. 8. Status post tonsillectomy and adenoidectomy. PLAN: 1. Continue Adderall 5 mg one tablet in the morning and one tablet around 1 p.m. 2. No driving if feeling sleepiness. 3. Sleep hygiene with regular time in bed for at least 7-1/2 to 8 hours. 4. Follow-up visit in 2 months. Thank you very much for allowing me to participate in the management of your patient. Sincerely, Dani Pinto MD, PhD, FAASM Diplomat of [place] [employer] Sleep Medicine Board of [place] [employer] Hot Plate [employer] Press Offbearer of [facility] [place] MMODL / IJN: [id number] /
== END | disposition home or self-care (01) ==
LOC: SLEEP 16:58
PROVIDERS: ATTEND Internal Medicine
DX: G47.33 Obstructive sleep apnea (adult) (pediatric) (principal); E66.9 Obesity, unspecified; K21.9 Gastro-esophageal reflux disease without esophagitis

== ENCOUNTER 2021-09-06 23:25 | Emergency (ER) | payer BC ==
[2021-09-06 23:45] VITALS: TEMP 97
[2021-09-06] MEDS ORDERED: SODIUM CHLORIDE 0.9% 1,000 ML IV STA (23:54)
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
--- NOTE | 2021-09-07 00:08 | XR ---
EXAMINATION TYPE: XR chest 1V portable DATE OF EXAM: 09/07/2021 COMPARISON: 11/02/2020 HISTORY: Cough TECHNIQUE: FINDINGS: Heart and mediastinum are normal. Lungs are clear. Diaphragm is normal. Bony thorax is inta ct. IMPRESSION: Normal chest. No change.
[2021-09-07 00:40] LABS: Basophils # (A) 0.1 k/uL (0-0.2); Basophils % (A) 1 %; Eosinophils # (A) 0.2 k/uL (0-0.7); Eosinophils % (A) 2 %; HCT 49.3 % (39.0-53.0); HGB 16.8 gm/dL (13.0-17.5); Lymphocytes # (A) 2.3 k/uL (1.0-4.8); Lymphocytes % (A) 22 %; MCH 30.8 pg (25.0-35.0); MCHC 34.1 g/dL (31.0-37.0); MCV 90.2 fL (80.0-100.0); Mean Platelet Volume 7.4; Monocytes # (A) 0.8 k/uL (0-1.0); Monocytes % (A) 8 %; Neutrophils # (A) 6.8 k/uL (1.3-7.7); Neutrophils % (A) 65 %; Platelet Count 367 k/uL (150-450); RBC 5.46 m/uL (4.30-5.90); RDW 12.1 % (11.5-15.5); WBC 10.4 k/uL (3.8-10.6)
[2021-09-07 00:48] LABS: African American GFR (CKD) >90 (>60 ml/min/1.73 sqM); Anion Gap 12 mmol/L; Blood Urea Nitrogen 16 mg/dL (9-20); Calcium 10.4 mg/dL (8.4-10.2); Carbon Dioxide 25 mmol/L (22-30); Chloride 103 mmol/L (98-107); Glucose 119 mg/dL (74-99); Non-African American GFR(CKD) >90 (>60 ml/min/1.73 sqM); Potassium 3.5 mmol/L (3.5-5.1); Sodium 140 mmol/L (137-145)
[2021-09-07 00:49] LABS: Influenza A Not Detected (Not Detectd); Influenza B Not Detected (Not Detectd)
[2021-09-07 01:18] VITALS: BP 116/79
[2021-09-07 02:40] VITALS: PULSE 95; RESP 15
[2021-09-07] MEDS ORDERED: DEXAMETHASONE SOD PHOSPHATE 10 MG/ML 1 ML VIAL IV STA (03:02)
== END 2021-09-07 03:15 | disposition home or self-care (01) ==
LOC: EC 23:25
DX: J21.0 Acute bronchiolitis due to respiratory syncytial virus (principal); J45.909 Unspecified asthma, uncomplicated; K21.9 Gastro-esophageal reflux disease without esophagitis; Z86.16 Personal history of COVID-19; Z79.899 Other long term (current) drug therapy; Z20.822 Contact with and (suspected) exposure to COVID-19
CPT/HCPCS: 36415; 80048; 85025; 86308; 87081; 87430; 87636; 71045; 99284; 96374; 96361; J1100

== ENCOUNTER → 2022-02-13 | Outpatient (CLI) | payer BC ==
--- NOTE | 2022-02-13 17:43 | P.PN ---
Subjective DATE: 02/13/2022 FOLLOW UP VISIT. Patient returned to sleep center for follow-up visit related to treatment of significant excessive daytime sleepiness secondary to narcolepsy or idiopathic hypersomnia because MSL T confirmed sleepiness but there was no sleep onset REM periods. Patient is on treatment with Adderall 10 mg in the morning and 5 mg on the second part of the day. With this regimen genitalia he feels much better [place] during the day, able to be more concentrated during the day. Recently she described an episode whenever a mile and around 1 PM she developed to to weakness in the body which continued for several hours. Longevity of cataplexy episodes usually my shorter. . [place] sleepiness scale is significantly increased to 18. MEDICATIONS:1. Adderall 10 mg in the morning and 5 mg afternoon. During physical exam: GENERAL: A pleasant patient without any distress. VITAL SIGNS: BP 134/88, HR 105, RR 18 , weight 183.6, temperature 97.4, oxygen saturation at room air 96 . HEENT: PERRLA, EOMI. NECK: Supple. No JVD. LUNGS: Clear to percussion and to auscultation. Good air exchange. No wheezing or rhonchi. HEART: S1, S2 regular. ABDOMEN: Soft and nontender. EXTREMITIES: No clubbing or cyanosis. SWAGER OPERATOR: Awake, alert, and oriented x3. No focal deficit. Impressions: 1. Hypersomnia confirmed by multiple sleep latency test. Differential diagnosis include idiopathic hypersomnia and narcolepsy. 2. Long episode when patient feels significant weakness in the whole body and difficulties to breathe without any wheezing. 3. History of asthma. 4. Acid reflux. 5. History of sinus problems. 6. History of headaches. 7. History of hypothyroidism. 8. Status post tonsillectomy and adenoidectomy. 9. Anxiety. Plan: 1. Patient will continue treatment with Adderall 10 mg in the morning and and 5 mg afternoon, if necessary up to 15 mg in the morning. 2. Additionally I will start patient on modafinil 200 mg in the morning. 3. Daytime naps permitted 4. Precautions related to driving. No driving if feel any sleepiness. Patient is aware about civil and criminal liability for unsafe driving, promised to follow recommendations. 5. Follow up visit in 4-6 months or earlier if patient has any problems. 6.Sleep hygiene with regular time in bed for at least 8 hours. 7. Patient was recommended to avoid stressful situations because strong emotions could be trigger factor for cataplexy. Thank you very much for allowing me to participate in the management of your patient. Dani Pinto MD, PhD, FAASM. Diplomat of [place] [employer], Sleep Medicine Board by [place] [employer] Casino Supervisor of [facility]
== END ==
LOC: SLEEP 16:46
PROVIDERS: ATTEND Internal Medicine
DX: G47.10 Hypersomnia, unspecified (principal); J45.909 Unspecified asthma, uncomplicated; K21.9 Gastro-esophageal reflux disease without esophagitis; Z87.09 Personal history of other diseases of the respiratory system; E03.9 Hypothyroidism, unspecified; Z90.09 Acquired absence of other part of head and neck; F41.9 Anxiety disorder, unspecified; Z79.899 Other long term (current) drug therapy

== ENCOUNTER → 2022-02-27 | Outpatient (CLI) | payer BC ==
--- NOTE | 2022-02-28 08:31 | SFUN ---
SLEEP CENTER FOLLOW UP NOTE HISTORY OF PRESENT ILLNESS: A 26-year-old gentleman has been followed in Sleep Center for treatment of significant excessive daytime sleepiness confirmed by multiple sleep latency test. During MSLT, no sleep-onset REM periods have been documented. The patient was started on treatment with Adderall 10 mg in the morning and 5 mg afternoon. With this regimen, he improved his alertness, but still feels sometimes tiredness and sleepiness. During the previous visit, several weeks ago, modafinil was added to the treatment. The patient was recommended to start modafinil with very low dose, slowly to increase the dose. With the dose of 200 mg in the morning, the patient developed episodes of muscle contractions and was not able to move around 5 p.m. At that time, he had some drooling and the episode continued for about 1 hour according to the patient. [place] Sleepiness Scale today is still significantly increased to 18. PHYSICAL EXAMINATION: GENERAL: The patient is in no distress. VITAL SIGNS: BP 127/77, HR 96, RR 16, temperature 97.4, and weight 183.2 pounds. HEENT: PERRLA, EOMI, evaluation of oropharynx showed tongue protrudes midline. NECK: Supple, no JVD. Thyroid is not palpable. LUNGS: Clear to percussion and to auscultation. Good air exchange. No wheezing or rhonchi. HEART: S1, S2 regular. No murmurs, gallops, or rubs. ABDOMEN: Soft and nontender. Bowel sounds are present. No organomegaly appreciated. EXTREMITIES: No clubbing or cyanosis. HOST/HOSTESS GROUND: Awake, alert, and oriented X3. Cranial nerves 2 to 7 intact. There is no fasciculation or atrophy noted. No focal deficits observed. IMPRESSION: 1. Hypersomnia, confirmed by multiple sleep latency test. No sleep-onset REM periods have been documented during MSLT. 2. Recent 2 episodes of muscle contraction, drooling. The patient was not able to move during these episodes. These episodes continued for about 1 hour. Most probably episodes of seizures. 3. History of asthma. 4. Acid reflux. 5. History of sinus problems. 6. History of headaches. 7. History of hypothyroidism. 8. Status post tonsillectomy and adenoidectomy. 9. Anxiety. PLAN: 1. Modafinil will be stopped. 2. The patient will continue to use Adderall 10 mg in the morning and 5 mg afternoon. 3. Sleep hygiene with regular time in bed for at least 8 hours. 4. Precautions related to driving, no driving if feeling sleepiness. 5. I would recommend evaluation by a neurologist for possible seizures disorder. 6. Try to avoid stressful situation because they may increase the risk for cataplexy. Thank you very much for allowing me to participate in management of your patient. MMNATIL / IJN: [id number] / ROJELIO
== END | disposition home or self-care (01) ==
LOC: SLEEP 10:06
PROVIDERS: ATTEND Internal Medicine
DX: G47.10 Hypersomnia, unspecified (principal); K21.9 Gastro-esophageal reflux disease without esophagitis; Z87.09 Personal history of other diseases of the respiratory system; Z86.39 Personal history of other endocrine, nutritional and metabolic disease; Z90.89 Acquired absence of other organs
CPT/HCPCS: 99212

== ENCOUNTER 2022-12-27 13:53 | Emergency (ER) | payer BC ==
[2022-12-27] MEDS ORDERED: SODIUM CHLORIDE 0.9% 1,000 ML IV STA (14:37)
[2022-12-27] MEDS ORDERED: KETOROLAC 15 MG/ML 1 ML VIAL IVP STA (14:37)
--- NOTE | 2022-12-27 14:59 | XR ---
EXAMINATION TYPE: XR chest 2V DATE OF EXAM: 12/27/2022 COMPARISON: 09/07/2021 HISTORY: Chest pain TECHNIQUE: Frontal and lateral views of the chest are obtained. FINDINGS: There is no focal air space opacity. No evidence for pneumothorax. No pleural effusion. The cardiac silhouette size is within normal limits. The osseous structures are grossly intact. IMPRESSION: 1. No acute cardiopulmonary process.
[2022-12-27 15:50] LABS: Basophils % (A) 0 %; Eosinophils % (A) 0 %; HCT 50.3 % (39.0-53.0); HGB 17.3 gm/dL (13.0-17.5); Lymphocytes # (A) 1.8 k/uL (1.0-4.8); Lymphocytes % (A) 11 %; MCH 30.8 pg (25.0-35.0); MCHC 34.4 g/dL (31.0-37.0); MCV 89.5 fL (80.0-100.0); Mean Platelet Volume 7.4; Monocytes % (A) 6 %; Neutrophils # (A) 14.2 k/uL (1.3-7.7); Neutrophils % (A) 82 %; Platelet Count 328 k/uL (150-450); RBC 5.62 m/uL (4.30-5.90); RDW 12.2 % (11.5-15.5); WBC 17.3 k/uL (3.8-10.6)
[2022-12-27 16:02] LABS: Partial Thromboplastin Time 23.3 sec (22.0-30.0); Prothrombin Time 10.7 sec (9.0-12.0)
--- NOTE | 2022-12-27 16:05 | ED ---
Dizziness HPI - General Chief Complaint: Syncope Stated Complaint: SOB, Syncope Time Seen by Provider: 12/27/22 14:21 Source: patient, RN notes reviewed Mode of arrival: ambulatory Limitations: no limitations - History of Present Illness Initial Comments: This is a 27-year-old male who presents to the emergency department for dizziness and fatigue. Patient was recently diagnosed with idiopathic hypersomnia at [facility]. States that he used to have episodes where he would lose consciousness or almost lose consciousness, his hands would cramp up, he would then become confused and would drool for a period of time afterwards. Today, he had 3 episodes back to back, which has never happened before. On initial evaluation, he states that he still feels somewhat dizzy and confused. He has had a lot of neurological and cardiac testing, including MRIs, EEGs, sleep studies, a holter monitor, and tilt table testing, and no conclusions aside from the idiopathic hypersomnia has been found. He does note that he has not slept much at all this week and he has been overdoing it mentally at work. Denies any fevers, chills, sore throat, cough, dyspnea, chest pain, palpitations, abdominal pain, nausea, vomiting, diarrhea, back pain, or head aches. MD Complaint: near syncope - Related Data Home Medications Medication Instructions Recorded Confirmed Omeprazole 40 mg PO 1700 10/25/20 02/26/21 Albuterol Sulfate [Albuterol 2 puff INHALATION QID PRN 02/21/21 02/26/21 Sulfate Hfa] Sertraline [Zoloft] 25 mg PO 1700 02/21/21 02/26/21 Allergies Allergy/AdvReac Type Severity Reaction Status Date / Time No Known Allergies Allergy Verified 12/27/22 14:08 Review of Systems ROS Statement: Those systems with pertinent positive or pertinent negative responses have been documented in the HPI. ROS Other: All systems not noted in ROS Statement are negative. Past Medical History Past Medical History: Asthma, GERD/Reflux, Sleep Apnea/CPAP/BIPAP, Thyroid Disorder Additional Past Medical History / Comment(s): See Dr Neal's H&P,"passed out twice while driving", COVID Aug 2020,no longer needs thyroid medication History of Any Multi-Drug Resistant Organisms: None Reported Past Surgical History: Tonsillectomy Past Anesthesia/Blood Transfusion Reactions: No Reported Reaction Additional Past Anesthesia/Blood Transfusion Reaction / Comment(s): hard time waking up with anesthesia Past Psychological History: No Psychological Hx Reported Smoking Status: Never smoker Past Alcohol Use History: Occasional Past Drug Use History: Marijuana - Past Family History Mother History Unknown: Yes Family Medical History: Cancer Brother(s) Additional Family Medical History / Comment(s): POTT's Syndrome General Exam Limitations: no limitations General appearance: alert, in no apparent distress Head exam: Present: atraumatic, normocephalic, normal inspection Eye exam: Present: normal appearance, PERRL, EOMI. Absent: scleral icterus, conjunctival injection, periorbital swelling Respiratory exam: Present: normal lung sounds bilaterally. Absent: respiratory distress, wheezes, rales, rhonchi, stridor Cardiovascular Exam: Present: normal rhythm, tachycardia Neurological exam: Present: alert, oriented X3, CN II-XII intact Psychiatric exam: Present: normal affect, normal mood Skin exam: Present: warm, dry, intact, normal color. Absent: rash Course Vital Signs 12/27/22 12/27/22 12/27/22 14:05 16:52 17:40 Temperature 97 F L 97.9 F Pulse Rate 120 H 107 H 103 H Respiratory 20 17 17 Rate Blood Pressure 138/82 128/81 130/91 O2 Sat by Pulse 99 98 95 Oximetry Medical Decision Making - Medical Decision Making This is a 27-year-old male who presents to the emergency department for dizziness and near syncopal episodes. Was pt. sent in by a medical professional or institution? @ -No Did you speak to anyone other than the patient for history? @ -No Did you review nursing and triage notes? @ -Yes, and I agree, it is accurate with regards to the patient's symptoms. Were old charts reviewed? @ -No Differential Diagnosis? @ -Differential Dizziness: Benign paroxysmal positional Vertigo, Menieres disease, otitis media, acoustic neuroma, vertebrobasilar insufficiency, cerebellar stroke, encephalitis, hypovolemic, arrhythmia, coronary artery syndrome, anemia, this is not meant to be an all-inclusive list EKG interpreted by me (3pts min.)? @ -EKG interpreted by me demonstrating the following: Sinus tachycardia. Ventricular rate 122 beats per minute, MA interval 127 ms, QRS duration 85 ms, QTC 410 ms. X-rays interpreted by me (1pt min.)? @ -Chest x-ray obtained, my interpretation identifies no localized consolidations or infiltrates. CT interpreted by me (1pt min.)? @ -Not obtained U/S interpreted by me (1pt. min.)? @ -Not obtained What testing was considered but not performed? (CT, X-rays, U/S, labs)? Why? @ -None What meds were considered but not given? Why? @ -None Did you discuss the management of the patient with other professionals? @ -No Did you reconcile home meds? @ -No Was smoking cessation discussed for >3mins.? @ -No Was critical care preformed (if so, how long)? @ -No Were there social determinants of health that impacted care today? How? (Homelessness, low income, unemployed, alcoholism, drug addiction, transportation, low edu. Level, literacy, decrease access to med. care, snf, rehab)? @ -No Was there de-escalation of care discussed even if they declined? (Discuss DNR or withdrawal of care, Hospice)? @ -No What co-morbidities impacted this encounter? (DM, HTN, Smoking, COPD, CAD, Cancer, CVA, Hep., AIDS, mental health diagnosis, sleep apnea, morbid obesity)? @ -Idiopathic hypersomnia Was patient admitted / discharged? @ -Discharged. Lab work obtained revealing leukocytosis and a slightly elevated lactic acid. Chest x-ray obtained revealed no acute findings. He was given a liter bolus of IV fluids. I did offer Toradol for his headache, however the patient declined. While in the emergency department, he did start to feel much better and the dizziness had resolved. Discussed with the patient that we cannot provide any additional testing here that he has not already had. He inquired about testing for amyloidosis, which his mother was diagnosed with. Advised that this cannot be done in the emergency department and is often diagnosed via tissue biopsy. Patient did feel back to baseline and was comfortable for discharge home. His also felt comfortable taking him home. Advised close follow-up with his primary care provider to discuss additional testing regarding his symptoms. He is also reminded to avoid driving for the meantime in the event any additional episodes occur. Undiagnosed new problem with uncertain prognosis? @ -None Drug Therapy requiring intensive monitoring for toxicity (Heparin, Nitro, Insulin, Cardizem)? @ -None Were any procedures done? @ -None Diagnosis/symptom? @ -Dizziness, near syncope Acute, or Chronic, or Acute on Chronic? @ -Acute Uncomplicated (without systemic symptoms) or Complicated (systemic symptoms)? @ -Uncomplicated Side effects of treatment? @ -None Exacerbation, Progression, or Severe Exacerbation] @ -Not applicable Poses a threat to life or bodily function? @ -No Return precautions reviewed in depth, the patient is instructed to return to the emergency department with any new, worsening, or concerning symptoms. Patient verbalized understanding. This case was discussed in detail with the attending ED physician, Dr. Le. Presentation, findings, and treatment plan discussed in detail as well. - Lab Data Result diagrams: 12/27/22 14:37 12/27/22 14:37 Lab Results 12/27/22 12/27/22 12/27/22 Range/Units 14:37 14:37 14:37 WBC 17.3 H (3.8-10.6) k/uL RBC 5.62 (4.30-5.90) m/uL Hgb 17.3 (13.0-17.5) gm/dL Hct 50.3 (39.0-53.0) % MCV 89.5 (80.0-100.0) fL MCH 30.8 (25.0-35.0) pg MCHC 34.4 (31.0-37.0) g/dL RDW 12.2 (11.5-15.5) % Plt Count 328 (150-450) k/uL MPV 7.4 Neutrophils % 82 % Lymphocytes % 11 % Monocytes % 6 % Eosinophils % 0 % Basophils % 0 % Neutrophils # 14.2 H (1.3-7.7) k/uL Lymphocytes # 1.8 (1.0-4.8) k/uL Monocytes # 1.0 (0-1.0) k/uL Eosinophils # 0.0 (0-0.7) k/uL Basophils # 0.0 (0-0.2) k/uL PT 10.7 (9.0-12.0) sec INR 1.0 (<1.2) APTT 23.3 (22.0-30.0) sec D-Dimer 0.19 (<0.60) mg/L FEU Sodium 140 (137-145) mmol/L Potassium 4.0 (3.5-5.1) mmol/L Chloride 102 (98-107) mmol/L Carbon Dioxide 20 L (22-30) mmol/L Anion Gap 18 mmol/L BUN 18 (9-20) mg/dL Creatinine 0.97 (0.66-1.25) mg/dL Est GFR (CKD-EPI)AfAm >90 (>60 ml/min/1.73 sqM) Est GFR (CKD-EPI)NonAf >90 (>60 ml/min/1.73 sqM) Glucose 105 H (74-99) mg/dL Lactic Ac Sepsis Rflx Plasma Lactic Acid Tex (0.7-2.0) mmol/L Calcium 10.0 (8.4-10.2) mg/dL Magnesium 1.9 (1.6-2.3) mg/dL Total Bilirubin 0.7 (0.2-1.3) mg/dL AST 37 (17-59) U/L ALT 42 (4-49) U/L Alkaline Phosphatase 98 (38-126) U/L Creatine Kinase 160 (55-170) U/L Troponin I (0.000-0.034) ng/mL Total Protein 8.3 H (6.3-8.2) g/dL Albumin 5.3 H (3.5-5.0) g/dL Urine Opiates Screen (NotDetected) Ur Oxycodone Screen (NotDetected) Urine Methadone Screen (NotDetected) Ur Propoxyphene Screen (NotDetected) Ur Barbiturates Screen (NotDetected) U Tricyclic Antidepress (NotDetected) Ur Phencyclidine Scrn (NotDetected) Ur Amphetamines Screen (NotDetected) U Methamphetamines Scrn (NotDetected) U Benzodiazepines Scrn (NotDetected) Urine Cocaine Screen (NotDetected) U Marijuana (THC) Screen (NotDetected) 12/27/22 12/27/22 12/27/22 Range/Units 14:37 14:37 16:23 WBC (3.8-10.6) k/uL RBC (4.30-5.90) m/uL Hgb (13.0-17.5) gm/dL Hct (39.0-53.0) % MCV (80.0-100.0) fL MCH (25.0-35.0) pg MCHC (31.0-37.0) g/dL RDW (11.5-15.5) % Plt Count (150-450) k/uL MPV Neutrophils % % Lymphocytes % % Monocytes % % Eosinophils % % Basophils % % Neutrophils # (1.3-7.7) k/uL Lymphocytes # (1.0-4.8) k/uL Monocytes # (0-1.0) k/uL Eosinophils # (0-0.7) k/uL Basophils # (0-0.2) k/uL PT (9.0-12.0) sec INR (<1.2) APTT (22.0-30.0) sec D-Dimer (<0.60) mg/L FEU Sodium (137-145) mmol/L Potassium (3.5-5.1) mmol/L Chloride (98-107) mmol/L Carbon Dioxide (22-30) mmol/L Anion Gap mmol/L BUN (9-20) mg/dL Creatinine (0.66-1.25) mg/dL Est GFR (CKD-EPI)AfAm (>60 ml/min/1.73 sqM) Est GFR (CKD-EPI)NonAf (>60 ml/min/1.73 sqM) Glucose (74-99) mg/dL Lactic Ac Sepsis Rflx Y Plasma Lactic Acid Tex 3.1 H* (0.7-2.0) mmol/L Calcium (8.4-10.2) mg/dL Magnesium (1.6-2.3) mg/dL Total Bilirubin (0.2-1.3) mg/dL AST (17-59) U/L ALT (4-49) U/L Alkaline Phosphatase (38-126) U/L Creatine Kinase (55-170) U/L Troponin I <0.012 (0.000-0.034) ng/mL Total Protein (6.3-8.2) g/dL Albumin (3.5-5.0) g/dL Urine Opiates Screen (NotDetected) Ur Oxycodone Screen (NotDetected) Urine Methadone Screen (NotDetected) Ur Propoxyphene Screen (NotDetected) Ur Barbiturates Screen (NotDetected) U Tricyclic Antidepress (NotDetected) Ur Phencyclidine Scrn (NotDetected) Ur Amphetamines Screen (NotDetected) U Methamphetamines Scrn (NotDetected) U Benzodiazepines Scrn (NotDetected) Urine Cocaine Screen (NotDetected) U Marijuana (THC) Screen (NotDetected) 12/27/22 Range/Units 17:00 WBC (3.8-10.6) k/uL RBC (4.30-5.90) m/uL Hgb (13.0-17.5) gm/dL Hct (39.0-53.0) % MCV (80.0-100.0) fL MCH (25.0-35.0) pg MCHC (31.0-37.0) g/dL RDW (11.5-15.5) % Plt Count (150-450) k/uL MPV Neutrophils % % Lymphocytes % % Monocytes % % Eosinophils % % Basophils % % Neutrophils # (1.3-7.7) k/uL Lymphocytes # (1.0-4.8) k/uL Monocytes # (0-1.0) k/uL Eosinophils # (0-0.7) k/uL Basophils # (0-0.2) k/uL PT (9.0-12.0) sec INR (<1.2) APTT (22.0-30.0) sec D-Dimer (<0.60) mg/L FEU Sodium (137-145) mmol/L Potassium (3.5-5.1) mmol/L Chloride (98-107) mmol/L Carbon Dioxide (22-30) mmol/L Anion Gap mmol/L BUN (9-20) mg/dL Creatinine (0.66-1.25) mg/dL Est GFR (CKD-EPI)AfAm (>60 ml/min/1.73 sqM) Est GFR (CKD-EPI)NonAf (>60 ml/min/1.73 sqM) Glucose (74-99) mg/dL Lactic Ac Sepsis Rflx Plasma Lactic Acid Tex (0.7-2.0) mmol/L Calcium (8.4-10.2) mg/dL Magnesium (1.6-2.3) mg/dL Total Bilirubin (0.2-1.3) mg/dL AST (17-59) U/L ALT (4-49) U/L Alkaline Phosphatase (38-126) U/L Creatine Kinase (55-170) U/L Troponin I (0.000-0.034) ng/mL Total Protein (6.3-8.2) g/dL Albumin (3.5-5.0) g/dL Urine Opiates Screen Not Detected (NotDetected) Ur Oxycodone Screen Not Detected (NotDetected) Urine Methadone Screen Not Detected (NotDetected) Ur Propoxyphene Screen Not Detected (NotDetected) Ur Barbiturates Screen Not Detected (NotDetected) U Tricyclic Antidepress Not Detected (NotDetected) Ur Phencyclidine Scrn Not Detected (NotDetected) Ur Amphetamines Screen Not Detected (NotDetected) U Methamphetamines Scrn Not Detected (NotDetected) U Benzodiazepines Scrn Not Detected (NotDetected) Urine Cocaine Screen Not Detected (NotDetected) U Marijuana (THC) Screen Not Detected (NotDetected) - Radiology Data Radiology results: report reviewed, image reviewed Disposition Clinical Impression: Idiopathic hypersomnia, Near syncope, Dizziness Disposition: HOME SELF-CARE Instructions (If sedation given, give patient instructions): Near Syncope (ED) Additional Instructions: Return to the emergency department with any new, worsening, or concerning symptoms. We do not have the testing available for amyloidosis here. This typically needs to be done via tissue biopsy. Discuss the possibility of this with your primary care provider. You can also discuss additional testing with Darío Knight or a referral to [facility]. Make sure that you remain well- hydrated and get plenty of rest. Follow up with your primary care provider in 1-2 days. Is patient prescribed a controlled substance at d/c from ED?: No Referrals: Elen Apple MD [Primary Care Provider] - 1-2 days
[2022-12-27 16:55] VITALS: RESP 17
[2022-12-27 17:04] LABS: ALT 42 U/L (4-49); AST 37 U/L (17-59); African American GFR (CKD) >90 (>60 ml/min/1.73 sqM); Albumin 5.3 g/dL (3.5-5.0); Alkaline Phosphatase 98 U/L (38-126); Anion Gap 18 mmol/L; Blood Urea Nitrogen 18 mg/dL (9-20); Carbon Dioxide 20 mmol/L (22-30); Chloride 102 mmol/L (98-107); Creatine Kinase 160 U/L (55-170); Glucose 105 mg/dL (74-99); Magnesium 1.9 mg/dL (1.6-2.3); Non-African American GFR(CKD) >90 (>60 ml/min/1.73 sqM); Sodium 140 mmol/L (137-145); Total Bilirubin 0.7 mg/dL (0.2-1.3); Total Protein 8.3 g/dL (6.3-8.2)
[2022-12-27 17:19] LABS: Amphetamine Screen,Urine Not Detected (NotDetected); Barbiturate Screen,Urine Not Detected (NotDetected); Benzodiazepines Screen,Urine Not Detected (NotDetected); Cocaine Screen,Urine Not Detected (NotDetected); Methadone Screen, Urine Not Detected (NotDetected); Opiate Screen,Urine Not Detected (NotDetected); Oxycodone Screen, Urine Not Detected (NotDetected); Phencyclidine Screen,Urine Not Detected (NotDetected); Tricyclic Antidepressant,Urine Not Detected (NotDetected); Urn Cannabinoid Scrn Not Detected (NotDetected)
[2022-12-27 17:51] VITALS: BP 130/91; PULSE 103; TEMP 97.9
== END 2022-12-27 17:52 | disposition home or self-care (01) ==
LOC: EC 13:53
DX: G47.10 Hypersomnia, unspecified (principal); R55 Syncope and collapse; R42 Dizziness and giddiness; J45.909 Unspecified asthma, uncomplicated; K21.9 Gastro-esophageal reflux disease without esophagitis; G47.30 Sleep apnea, unspecified; F12.90 Cannabis use, unspecified, uncomplicated; Z79.899 Other long term (current) drug therapy
CPT/HCPCS: 36415; 71046; 80053; 80306; 82550; 83605; 83735; 84484; 85025; 85379; 85610; 85730; 93005; 96360; 96361; 99284

== ENCOUNTER → 2023-01-02 | Outpatient (CLI) | payer BC | END | disposition home or self-care (01) | LOC: LABWHC1 08:54 | PROVIDERS: ATTEND Family Medicine | DX: Z91.89 Other specified personal risk factors, not elsewhere classified (principal) | CPT/HCPCS: 36415; 83655 ==

== ENCOUNTER 2025-01-10 12:21 | Emergency (ER) | payer BC ==
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
[2025-01-10] MEDS: KETOROLAC 15 MG/ML 1 ML VIAL IVP STA (13:18)
[2025-01-10] MEDS: SODIUM CHLORIDE 0.9% 1,000 ML IV STA (13:19)
[2025-01-10 13:33] LABS: Basophils # (A) 0.09 10*3/uL (0.00-0.10); Eosinophils # (A) 0.13 10*3/uL (0.04-0.35); Eosinophils % (A) 1.5 %; HCT 45.7 % (39.6-50.0); HGB 16.1 g/dL (13.0-17.0); Lymphocytes # (A) 3.07 10*3/uL (0.90-5.00); Lymphocytes % (A) 35.2 %; MCH 31.7 pg (27.0-32.0); MCHC 35.2 g/dL (32.0-37.0); Mean Platelet Volume 9.4 fL (9.5-12.2); Monocytes # (A) 0.73 10*3/uL (0.20-1.00); Monocytes % (A) 8.4 %; Neutrophils # (A) 4.69 10*3/uL (1.80-7.70); Neutrophils % (A) 53.8 %; Platelet Count 315 10*3/uL (140-440); RBC 5.08 10*6/uL (4.40-5.60); RDW 12.2 % (11.5-14.5); WBC 8.72 10*3/uL (4.50-10.00)
--- NOTE | 2025-01-10 13:51 | CT ---
EXAMINATION TYPE: CT abdomen pelvis wo con DATE OF EXAM: 01/10/2025 COMPARISON: None CLINICAL INDICATION: Male, 29 years old with history of left flank pain; PHH, FLANK PAIN AND DIFFICUL T WITH URINATION X1 MONTH TECHNIQUE: CT scan of the abdomen and pelvis is performed without oral or IV contrast. CT DLP: 510.[address] CTDI: mGy Automated exposure control for dose reduction was used. FINDINGS: Within the limitations of a non-contrast study, the following observations are made. The lungs are clear. Gallbladder is normal and there is no gallstone, wall thickening, pericholecystic fluid or distention . There is no biliary ductal dilatation. There is no organomegaly of the liver, pancreas, spleen or adrenal glands. There is mild left hydronephrosis secondary to an obstructing 7 mm left UPJ calculus. The right kidne y is unremarkable The caliber of the abdominal aorta is normal and there is no retroperitoneal adenopathy or hemorrhage . The bowel loops are normal in caliber is no evidence of obstruction. No inflammatory changes are iden tified in the mesentery and there is no free intraperitoneal air or fluid. There is no pelvic mass, free fluid, abscess or adenopathy. There is mild diverticulosis of the colon without CT evidence of diverticulitis. The osseous structures and soft tissues are unremarkable. IMPRESSION: Mild left hydronephrosis secondary to an obstructing 7 mm left UPJ calculus. No other significant abn ormality seen within the abdomen or pelvis. [facility], Workstation: [id number], 01/10/2025 1:49 PM
[2025-01-10 14:03] LABS: ALT 23 U/L (4-49); AST 22 U/L (17-59); African American GFR (CKD) >90 (>60 ml/min/1.73 sqM); Albumin 4.9 g/dL (3.5-5.0); Alkaline Phosphatase 59 U/L (38-126); Anion Gap 12 mmol/L; Blood Urea Nitrogen 16 mg/dL (9-20); Carbon Dioxide 25 mmol/L (22-30); Chloride 103 mmol/L (98-107); Glucose 95 mg/dL (74-99); Lipase 67 U/L (23-300); Non-African American GFR(CKD) >90 (>60 ml/min/1.73 sqM); Potassium 4.1 mmol/L (3.5-5.1); Sodium 140 mmol/L (137-145); Total Bilirubin 0.8 mg/dL (0.2-1.3); Total Protein 7.3 g/dL (6.3-8.2)
[2025-01-10 14:13] LABS: Appearance,Urine Clear (Clear); Bilirubin,Urine Negative (Negative); Blood,Urine Negative (Negative); Color,Urine Colorless; Glucose,Urine (UA) Negative (Negative); Ketones,Urine Negative (Negative); Leukocyte Esterase,Urine Negative (Negative); Nitrite,Urine Negative (Negative); PH, Urine 6.5 (5.0-8.0); Protein,Urine Negative (Negative); Specific Gravity,Urine 1.008 (1.001-1.035); Urobilinogen,Urine <2.0 mg/dL (<2.0)
[2025-01-10 16:26] VITALS: BP 121/80; PULSE 76; RESP 19; TEMP 98.2
== END 2025-01-10 16:48 | disposition home or self-care (01) ==
LOC: EC 12:21
DX: N13.2 Hydronephrosis with renal and ureteral calculous obstruction (principal)
CPT/HCPCS: 36415; 80053; 83605; 83690; 85025; 81003; 74176; 99284; 96374; 96361; J1885

== ENCOUNTER 2025-01-24 12:21 | Day surgery (SDC) | payer BC ==
[2025-01-19 11:36] VITALS: BMI 26.6
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
[~2025-01-24 12:21] MED LIST changes: +LIDOCAINE 1% (10MG/ML) FOR IV START INTRADERMA PRN; +SCOPOLAMINE 1 MG/72 HR PATCH TRANSDERM ONE; -SODIUM CHLORIDE 0.9% 1,000 ML IV SCH; +fentaNYL (PF) 50 MCG/ML 2 ML AMP IV PRN
[2025-01-24] MEDS: IV FLUID CONTINUATION 1,000 ML IV ONE (13:01)
[2025-01-24] MEDS: DEXAMETHASONE SOD PHOSPHATE 4 MG/ML 1 ML VIAL IV ONE (13:25)
[2025-01-24] MEDS: LACTATED RINGERS 1,000 ML IV SCH (13:26)
[2025-01-24] MEDS: ONDANSETRON 4 MG/2 ML VIAL IVP STA (13:26)
--- NOTE | 2025-01-24 13:45 | XR ---
EXAMINATION TYPE: XR KUB DATE OF EXAM: 01/24/2025 12:55 PM COMPARISON: None. CLINICAL INDICATION: Male, 29 years old with history of M25.511 right shoulder pain, TECHNIQUE: Single view of the abdomen. FINDINGS: Right renal calculi: None Visualized. Right ureteral calculi: None Visualized. Left renal calculi: None Visualized. Left ureteral calculi: 6 mm calculus left UPJ. Pelvic calcifications: None Visualized. Bowel gas pattern is unremarkable. No free air. No mass effects. IMPRESSION: 1. 6 mm calculus left UPJ. [facility], , 01/24/2025 1:43 PM
[2025-01-24] MEDS ORDERED: fentaNYL (PF) 50 MCG/ML 2 ML AMP ONE (15:58)
[2025-01-24] MEDS ORDERED: PROPOFOL 10 MG/ML 20 ML VIAL IV ONE (15:58)
[2025-01-24] MEDS ORDERED: MIDAZOLAM 2 MG/2 ML VIAL ONE (15:58)
[2025-01-24] MEDS ORDERED: LIDOCAINE 1% INJ 10MG/ML (20 ML MDV) ONE (15:58)
[2025-01-24 17:24] VITALS: TEMP 97
--- NOTE | 2025-01-24 17:29 | P.OP ---
Date of Procedure: 01/24/25 Preoperative Diagnosis: Left ureteral stone Postoperative Diagnosis: Same Procedure(s) Performed: Cystoscopy, left ureteroscopy, holmium laser lithotripsy, stone basketing and stent insertion Implants: 6 [place] by 26 cm stent in the left ureter left on a string Anesthesia: CHLOE Surgeon: Barry Robertson Estimated Blood Loss (ml): 5 Pathology: other (Left ureteral stone) Condition: stable Disposition: PACU Indications for Procedure: This is a 29-year-old male with history of 7 mm left-sided UPJ stone. He is symptomatic from his stone. Option of left ESWL versus ureteroscopy with holmium laser was discussed. Risk and benefit of each approach were discussed. He agreed to proceed with left-sided ureteroscopy with holmium laser. He is aware of the risk which include but not limited to bleeding, infection, injury to the ureter Operative Findings: Large left-sided UPJ stone Description of Procedure: Patient brought the operating room, general anesthesia was induced. He was prepped and draped in sterile fashion placed in a dorsolithotomy position. Of note patient had narrowing at the navicularis fossa, at this point I inserted a cystoscope fitted with a 17 [place] sheath and I was able to advance the scope atraumatically into the urethra, cystoscopy was performed showed no abnormality within the bladder, prostate was small and nonocclusive. Attention was then carried to the left ureteral orifice which was intubated with a sensor wire, the wire was advanced under fluoroscopy into the kidney. Of note at the level of the proximal ureter a radiopaque stone could be seen. At this time the cystoscope was withdrawn with the wire in place. Next I attempted to pass an 1113 [place] access sheath over the wire but resistance was met at the distal ureter. At this point I used the inner part of the access sheath, which was passed over the wire and the distal ureter was dilated using the 11 [place] inner part. At this time I reattempted to advance the access sheath over the wire un lisa fluoroscopy but resistance was still met at the distal ureter. At this point I advanced the ureteroscope over the wire under fluoroscopy and into the proximal ureter. A large stone was encountered at the UPJ. Using the holmium laser the stone was dusted, repeat renoscopy showed no sizable fragments or injury to the ureter or the kidney on fluoroscopy there is no radiopaque density seen. At this time using the stone basket one of the smaller fragments was grasped and pullback ureteroscopy was performed showed no injury to the ureter or any ureteral stones. The fragment was sent for analysis. This time the cystoscope was reinserted per urethra and advanced into the bladder. The left ureter orifice was intubated with a sensor wire, the wire was advanced under fluoroscopy into the kidney. Next a ureteral stent was passed over the wire, the proximal curl was realized on fluoroscopy and the distal curl was visualized using cystoscope. The stent was left on a string and taped to the patient penis. Patient tolerated the procedure well was taken to recovery in stable condition
--- NOTE | 2025-01-24 17:32 | FL ---
EXAMINATION TYPE: FL guidance operating room Intraoperative/procedural fluoroscopic services were pro vided. CLINICAL INDICATION:Male, 29 years old with history of CYSTO LITHO; , [facility] FINDINGS: Single fluoroscopic image demonstrating left ureteral stent. No radiographic evidence for complicatio n. Total fluoroscopy time is 10.6 seconds. DAP: [id number] Gycm2 Please see the operative/procedural note for further details. [facility], , 01/24/2025 5:30 PM
[2025-01-24] MEDS: HYDROmorphone 0.5 MG/0.5 ML SYRINGE IVP PRN (17:34)
[2025-01-24] MEDS: KETOROLAC 15 MG/ML 1 ML VIAL IVP STA (17:35)
[2025-01-24 18:09] VITALS: BP 129/73; PULSE 88; RESP 18
== END 2025-01-24 18:55 ==
LOC: OR 12:21
PROVIDERS: ATTEND Urology
DX: N20.1 Calculus of ureter (principal); J45.909 Unspecified asthma, uncomplicated; K21.9 Gastro-esophageal reflux disease without esophagitis; E07.9 Disorder of thyroid, unspecified; F12.90 Cannabis use, unspecified, uncomplicated; Z86.16 Personal history of COVID-19; Z90.89 Acquired absence of other organs; Z98.890 Other specified postprocedural states; Z79.51 Long term (current) use of inhaled steroids; Z79.899 Other long term (current) drug therapy
CPT/HCPCS: 82365; 74018; 52356; C1769; J2250; J1100; J0690; J2405; J2003; J3010; J1885; J2704; J1171